=== PATIENT | male | born 1955 | race Caucasian/White ===

== ENCOUNTER → 2023-05-07 14:15 | Outpatient (REF) | payer OTHER, SELFPAY | LOC: DHCBC MAIN 14:15 | PROVIDERS: ATTENDING PHYSICIAN Internal Medicine Cardiovascular Disease; FAMILY PHYSICIAN Family Medicine | DX: I10 Essential (primary) hypertension (principal); R00.0 Tachycardia, unspecified; I25.10 Atherosclerotic heart disease of native coronary artery without angina pectoris | CPT/HCPCS: 93306 ==

== ENCOUNTER → 2023-05-19 14:29 | Outpatient (REF) | payer OTHER, SELFPAY | LOC: RCS 14:29 | PROVIDERS: ATTENDING PHYSICIAN Internal Medicine Cardiovascular Disease; FAMILY PHYSICIAN Family Medicine | DX: R00.0 Tachycardia, unspecified (principal); I10 Essential (primary) hypertension; I25.10 Atherosclerotic heart disease of native coronary artery without angina pectoris | CPT/HCPCS: 93017 ==

== ENCOUNTER → 2023-06-23 13:31 | Outpatient (REF) | payer OTHER, SELFPAY | LOC: RCS 13:31 | PROVIDERS: ATTENDING PHYSICIAN Internal Medicine Cardiovascular Disease; FAMILY PHYSICIAN Family Medicine | DX: R94.39 Abnormal result of other cardiovascular function study (principal) | CPT/HCPCS: 93017; 93350 ==

== ENCOUNTER 2023-07-03 08:23 | Day surgery (SDC) | payer OTHER, SELFPAY ==
[2023-07-02 09:01] VITALS: BMI 25.2
[2023-07-02 09:18] LABS: % Basophils 0.6 % (0-2); % Eosinophils 3.4 % (0-6); % Immature Granulocytes 0.8 % (0-0.5); % Lymphocytes 24.8 % (20.5-51.1); % Monocytes 8.3 % (1.7-9.3); % Neutrophils 62.1 % (42.2-75.2); Absolute Eosinophils 0.2 10^3/uL (0-0.7); Absolute Lymphocytes 1.3 10^3/uL (1.2-3.4); Absolute Monocytes 0.4 10^3/uL (0.1-0.6); Absolute Neutrophils 3.3 10^3/uL (1.4-6.5); Hematocrit 41.6 % (39.0-52.0); Hemoglobin 14.6 g/dL (13.0-18.0); Mean Corp Hgb Conc. 35.1 g/dL (33.0-37.0); Mean Corpuscular Hgb 31.2 pg (27.0-31.0); Mean Corpuscular Volume 88.9 fL (80.0-94.0); Nucleated Red Blood Cells % 0 % (-); Platelet Count 181 10^3/uL (130-400); Red Blood Cell Count 4.68 10^6/uL (4.70-6.10); Red Cell Dist. Width 12.6 % (11.5-14.5); White Blood Cell Count 5.3 10^3/uL (4.8-10.8)
[2023-07-02 09:53] LABS: ALT (SGPT) 18 U/L (0-50); AST (SGOT) 23 U/L (17-59); Albumin 4.2 g/dl (3.5-5.0); Alkaline Phosphatase 89 U/L (38-126); Blood Urea Nitrogen 15 mg/dl (9-20); Calcium 9.7 mg/dl (8.4-10.2); Carbon Dioxide 30 mmol/L (22-30); Chloride 100 mmol/L (98-107); Estimated Creatinine Clearance 90 ml/min; Glucose 108 mg/dl (70-99); Potassium 4.2 mmol/L (3.5-5.1); Sodium 138 mmol/L (135-145); Total Bilirubin 0.6 mg/dl (0.2-1.3); eGFR > 60.00
--- NOTE | 2023-07-02 10:29 | HPS.HSE ---
Family Physician
-
Family Physician: Jos Gibson
Chief Complaint
-
Coronary artery disease. Chest pain. Abnormal stress echocardiogram.
History of Present Illness
The patient is a 67 year old male presenting today for coronary artery disease and recent chest pain. The patient was hospitalized in late January 2023 at [facility] with progressive dyspnea. He was ultimately diagnosed and
treated for bilateral lower lobe pneumonia. Pulmonary emboli were ruled out through CT angiogram; however, a coronary artery calcification was noted. He was recommended to follow-up with a statistical financial analyst upon discharge. Since then, he has noticed
chest pressure with associated shortness of breath when walking up inclines in cold weather. A stress echocardiogram was ordered to assess his symptoms. His stress echocardiogram on 06/23/2023 was positive for ischemia within the LAD territory and
possible circumflex territory. He will undergo a left cardiac catheterization for further assessment. He denies any current complaints today such as chest pain and shortness of breath at rest, palpitations, nausea, vomiting, diarrhea,
lightheadedness, dizziness, cough, sore throat, or fever.
Medical History
Past Medical History
Past Medical History: Reports Other
Additional Past Medical History:
1. Coronary artery disease.
2. Chest pain with abnormal stress echocardiogram.
3. Hypertension.
4. Hypercholesterolemia.
5. Sinus tachycardia, asymptomatic and controlled with Metoprolol Succinate.
6. BPH.
7. Remote history of tobacco abuse.
Past Surgical History: Reports Other
Additional Past Surgical History:
1. Testicle resection (benign).
2. Colonoscopy.
Social History
Tobacco: Former Smoker (He is a former 1 and 1/2 to 2 pack per day smoker who quit cigarettes altogether 10 years ago. )
Alcohol: None
Personal:
Living: Other (He lives in a 1st floor apartment with his . )
Family History
Family History: Not pertinent
Allergies / Home Medications
Allergy/Medication List:
Home medications:
1. Aspirin 81 mg p.o. daily.
2. Finasteride 5 mg p.o. daily.
3. Isosorbide mononitrate 30 mg p.o. daily.
4. Metoprolol Succinate 25 mg p.o. daily.
5. Nitroglycerin 0.4 mg sublingual every 5-15 minutes as needed (max 3 doses).
6. Tamsulosin 0.8 mg p.o. every evening.
7. Multivitamin 1 tablet p.o. every evening.
Allergies: No known allergies.
Review of Systems
-
A 12 point ROS was completed and negative except as noted: Yes
Physical Exam
Vital Signs
Blood pressure 128/78. Heart rate 94. Respirations 18. Pulse ox 95%.
Height 5 feet, 10 inches. Weight 79.8 kg. BMI 25.2.
Physical Exam
General: Well Developed, Well Nourished and No Apparent Distress
HEENT: NormoCephalic, Moist mucous membranes, Atraumatic and PERRLA
Respiratory: Clear
Cardiac: Regular Rhythm
GI: Soft, Non Tender and Non Distended
Musculoskeletal: Normal Gait & Station
Skin: Warm and Dry
Neuro: AO x 3 and Nonfocal/grossly intact
Laboratory Results
-
07/02/23 09:08
07/02/23 09:08
Laboratory Results
Total Bilirubin 0.6 mg/dl (0.2-1.3) 07/02/23 09:08
AST 23 U/L (17-59) 07/02/23 09:08
ALT 18 U/L (0-50) 07/02/23 09:08
Alkaline Phosphatase 89 U/L (38-126) 07/02/23 09:08
EKG 07/02/2023: Normal sinus rhythm. Nonspecific T wave abnormality.
Exercise stress test 05/19/2023: Abnormal treadmill stress test. The specificity of the ST depression is lower because of baseline ST abnormality.
Stress echocardiogram 06/23/2023: Positive stress echocardiogram for ischemia with LAD territory and possible circumflex territory wall motion abnormalities. Moderate risk study with Rogel treadmill score, DTS -4. Well below average exercise
tolerance.
Impression/Plan
-
IMPRESSION/PLAN:
1. Coronary artery disease, chest pain, and abnormal stress echocardiogram: The patient is in need of a left cardiac catheterization with Dr. Eliseo Dueñas on 07/03/2023. The benefits and risks of the procedure have been explained to the patient.
The patient understands these risks and wishes to proceed. He will continue his baby Aspirin up to and including the morning of his procedure.
[2023-07-03] VITALS (10 sets, daily range): BP systolic 121–171; BP diastolic 81–97
[2023-07-03 10:27] LABS: ACT-LR - POC 360 Seconds (116-155)
--- NOTE | 2023-07-03 11:42 | ITS.CL.CATH ---
Line Clearance Foreman - Catheterization
Cardiac Catheterization
Procedure Report:
CARDIAC CATHETERIZATION REPORT
Date of Procedure: 07/03/2023
Referring: Demarco Faustin MD
Indication: Chest pain/abnormal stress test
HEMODYNAMIC DATA
AO: 132/75
LV: 132/16
LEFT VENTRICULOGRAPHY: Normal left ventricular wall motion with EF 53%
CORONARY ANGIOGRAPHY
Dominance: Right
Left Main: Normal
LAD: Eccentric calcific 40% proximal LAD stenosis with otherwise trivial luminal irregularities in the LAD system.
Circumflex: Mild luminal irregularities
RCA: Dominant vessel with mild calcific proximal disease and severe calcific 90% mid RCA stenosis proximal to the crux. The RCA terminates with a large PDA and two relatively small RPL branches
Angioplasty: At the conclusion of the diagnostic study, we proceeded with PCI of the highly calcified mid RCA disease. Heparin was used for anticoagulation. Plavix 600 mg was administered the procedure conclusion. The RCA origin was upsloping and
we opted for a YASHIRA guide catheter. A BMW wire was advanced into the RCA but would not cross the severe mid disease. We attempted unsuccessfully to bring a [employer] exchange catheter around the proximal RCA band to allow for wire exchanges and
backup support to attempt to push through the severely diseased segment. The exchange catheter would not make the turn around the proximal RCA bend. In addition to the BMW, we tried a Fielder XT wire which also would not cross the mid RCA disease.
At this point we removed the entire system and used an AL 0.75 guide catheter for maximum backup support. A BMW wire was advanced into the distal RCA and we were able to get this wire through the diseased segment into the distal RPL branch. This
allowed us to bring a guide liner around the proximal RCA bend. A 1.5 x 12 AirClictronic Euphora balloon was advanced across the diseased segment and inflated to 12 yesika. We then pulled the balloon back to treat the most proximal portion of the disease
and the balloon ruptured at approximately 8 yesika. The ruptured balloon was removed. We were able to get the guide liner around the bend into the mid RCA to maximize backup support. We then did a series of inflations with a 2.0 x 20 NC trek balloon
to maximum 14 yesika and then with a 2.5 x 20 NC trek balloon to maximum 14 yesika. There was good balloon expansion allowing us to be confident that a stent could be expanded in the lesion. A 3.0 x 30 [place] frontier DICK was successfully passed across
the lesion and deployed at 16 yesika. We then postdilated the stent with a 3.0 NC Euphora to 17 yesika. Final angiography demonstrated an outstanding angiographic result with no residual stenosis within the stented segment. There were no procedural
complications. This was a difficult case that required multiple wires and balloons and prolonged time.
Closure Device: None-the procedure was performed via the right radial artery
Radiation (mGy): 530
DAP (cm2.Gy): 50.6
Fluoroscopy time: 20.4-minute
CONCLUSIONS
1: Normal left ventricular function with EF 53%
2: CAD as described
3. Successful stenting of severe calcific mid RCA disease using 3.0 x 30 Trell frontier DICK with outstanding final result
4. Recommend dual antiplatelet therapy for 12 months and continued aggressive risk factor modification efforts
Copy to: Demarco Faustin MD, Jaswinder Gibson MD ([place], [place])
Eliseo Dueñas MD, [facility], [facility]
[2023-07-03 12:30] LABS: ACT-LR - POC > 397 Seconds (116-155)
--- NOTE | 2023-07-03 14:32 | W.PN.UPDATE ---
Update Note
Progress Note Update
Pt seen post RCA PCI. Right radial cath site without ht/bleeding, non tender. OOB to chair/bathroom. Post EKG NSR 70s, no acute changes. Pt understands importance of uninterrupted DAPT w/asa, plavix. New start atorvastatin 40mg/daily. Cardiac rehab
consulted. Followup at [facility] as scheduled. Home today if cath site/tele remain stable.
== END 2023-07-03 16:55 | disposition home or self-care (01) ==
LOC: CATH 08:23
PROVIDERS: ATTENDING PHYSICIAN Internal Medicine Cardiovascular Disease; FAMILY PHYSICIAN Family Medicine; OTHER PHYSICIAN Internal Medicine Cardiovascular Disease
DX: I25.10 Atherosclerotic heart disease of native coronary artery without angina pectoris (principal); I25.84 Coronary atherosclerosis due to calcified coronary lesion; R94.39 Abnormal result of other cardiovascular function study; R07.89 Other chest pain; R06.02 Shortness of breath; R06.00 Dyspnea, unspecified; I10 Essential (primary) hypertension; E78.00 Pure hypercholesterolemia, unspecified; R00.0 Tachycardia, unspecified; N40.0 Benign prostatic hyperplasia without lower urinary tract symptoms; Z87.891 Personal history of nicotine dependence; Z86.711 Personal history of pulmonary embolism; Z79.82 Long term (current) use of aspirin
CPT/HCPCS: 36415; 80053; 85025; 85347; 93005; 93458; C1725; C1769; C1874; C1887; C1894; C9600; Q9967

== ENCOUNTER → 2023-07-17 12:05 | Outpatient (REF) | payer OTHER, SELFPAY | LOC: RAD 12:05 | PROVIDERS: ATTENDING PHYSICIAN Nurse Practitioner; FAMILY PHYSICIAN Family Medicine | DX: I25.10 Atherosclerotic heart disease of native coronary artery without angina pectoris (principal); E78.00 Pure hypercholesterolemia, unspecified | CPT/HCPCS: 93931 ==